=== PATIENT | female | born 1965 | race Caucasian/White ===

== ENCOUNTER → 2017-04-18 | Outpatient (CLI) | payer BC ==
[~2017-04-18] MED LIST: ASPI-321 OR; BUPR150T47 PO; TPRSRUNK; ZCRUNK
--- NOTE | 2017-04-18 11:36 | DIAGNOSTIC IMAGING REPORT ---
LUMBAR SPINE 5 VIEWS HISTORY: Pain LOWER BACK PAIN COMPARISON: None. FINDINGS: There is no fracture. No subluxation. Minimal degenerative disc change IMPRESSION: Minimal/mild degenerative disc change. No acute process. Electronically signed by: Bo Davis M.D. 04/18/2017 11:35 AM Dictated Date/Time: 04/18/2017 11:33 AM
== END | disposition home or self-care (01) ==
LOC: C.RADBC 11:18
PROVIDERS: ATTEND Nurse Practitioner Adult Health
DX: M54.5 Low back pain (principal)

== ENCOUNTER → 2017-05-30 | Outpatient (CLI) | payer BC ==
[2017-05-30 11:36] LABS: BASO % 0.3 %; BASO ABS # 0.02 K/uL (0-0.2); COMPLETE YES; EOS % 1.4 %; HEMATOCRIT 47.5 % (37-47); IG% 0.3 %; LYMPH % 29.5 %; LYMPH ABS # 2.29 K/uL (1.2-3.4); MEAN CORPUSCULAR HEMOGLOBIN 32.9 pg (25-34); MEAN CORPUSCULAR HGB CONC 33.3 g/dl (32-36); MEAN PLATELET VOLUME 11.4 fL (7.4-10.4); MONO % 7.3 %; NEUT % 61.2 %; PLATELET COUNT 219 K/uL (130-400); WHITE BLOOD COUNT 7.77 K/uL (4.8-10.8)
[2017-05-30 12:00] LABS: ALT/SGPT 21 U/L (12-78); BLOOD UREA NITROGEN 7 mg/dl (7-18); CALCIUM 9.4 mg/dl (8.5-10.1); CARBON DIOXIDE 26 mmol/L (21-32); CHLORIDE 107 mmol/L (98-107); CHOLESTEROL 206 mg/dl (0-200); CREATININE 0.53 mg/dl (0.60-1.20); GLUCOSE 77 mg/dl (70-99); POTASSIUM 4.2 mmol/L (3.5-5.1); SODIUM 140 mmol/L (136-145)
[2017-05-30 12:03] LABS: ALKALINE PHOSPHATASE 88 U/L (45-117); AST/SGOT 17 U/L (15-37); CHOLESTEROL/HDL RATIO 2.9; HDL CHOLESTEROL 72 mg/dl; LDL CHOLESTEROL CALCULATED 91 mg/dl; TRIGLYCERIDES 214 mg/dl (0-150); VERY LOW DENSITY LIPOPROT CALC 43 mg/dl
[2017-05-30 13:51] LABS: ESTIMATED AVERAGE GLUCOSE 103 mg/dl; HA1C FLAG Normal (Normal)
--- NOTE | 2017-06-04 11:30 | CODING QUERY MEDICAL NECESSITY ---
CQSUPPORTING DIAGNOSIS NEEDED A supporting diagnosis is required for the test/procedure performed on this patient in order for us to be reimbursed by the patient's insurance. Please provide a supporting diagnosis for the following test/procedure listed below next to the test name along with your signature. *If there is no additional diagnosis for this patient that would support the following test/procedure please document that below next to the test/procedure. Test(s)/Procedure(s) that require a supporting diagnosis: DOS 05/30/17 VITAMIN D TEST GLYCATED HEMOGLOBIN TEST Provider Signature: Date: Thank you Asya Gallagher Health Information Management Once completed, please kindly fax back to [phone] For questions please call [phone]
== END | disposition home or self-care (01) ==
LOC: C.LAB 10:37
PROVIDERS: ATTEND Nurse Practitioner
DX: Z00.00 Encounter for general adult medical examination without abnormal findings (principal); E78.5 Hyperlipidemia, unspecified

== ENCOUNTER → 2018-04-12 | Outpatient (CLI) | payer BC ==
--- NOTE | 2018-04-12 10:45 | DIAGNOSTIC IMAGING REPORT ---
CHEST 2 VIEWS ROUTINE CLINICAL HISTORY: R05 [id number] COMPARISON STUDY: 03/12/2015 FINDINGS: The cardiac and mediastinal contours are normal. There is no evidence of focal pulmonary consolidation. There is no evidence of failure. No pleural effusions are visualized.[ IMPRESSION: No active disease in the chest. Electronically signed by: Neri Carlton M.D. 04/12/2018 10:43 AM Dictated Date/Time: 04/12/2018 10:43 AM
== END | disposition home or self-care (01) ==
LOC: C.RAD1850 10:26
PROVIDERS: ATTEND Physician Assistant
DX: R05 Cough (principal)

== ENCOUNTER 2022-04-30 10:26 | Observation (INO) ==
[2022-04-30] MEDS ORDERED: ONDANSETRON INJ 2 MG/ML 2 ML VIAL IV STA (10:32)
--- NOTE | 2022-04-30 10:34 | Emergency Department Note ---
Impression & Plan Chest pain ADMIT ED Provider Note HPI: The patient is a 56-year-old female who presents emergency department with chief complaint of chest pain. Patient states that her chest pain is now resolved. She states that around 8:30 AM she developed some substernal chest discomfort that radiated to her back. She states she also had some nausea at that time. Patient states that she contacted EMS for transport to the ED however by the time she arrived here her discomfort had resolved. She was given aspirin in route via EMS. EKG in the field did not show any ST elevation. She states she also took some Motrin around 9 AM. Patient has a history of hypertension, longs tanding smoking history, on arrival here to the ED she is in no acute distress, states she is now pain-free, she is otherwise hemodynamically stable on my initial assessment, saturating well on room air. 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 Patient states this lasted for about an hour and a half, resolved spontaneously prior to arrival here to the ED. on arrival the patient is hypertensive but otherwise in no acute distress on my initial assessment. IV was established, lab work obtained, patient was given aspirin prior to arrival. EKG on arrival does not show any acute ischemic changes, high-sensitivity troponin level is within normal limits on initial check. D-dimer is also within normal limits. Upon review of the patient's chart, she did have a diagnostic catheterization done several years ago that shows evidence of nonocclusive LAD coronary artery disease, she did not receive a stent at that time. She is an active smoker with an approximate [id number] history of smoking, she has a history of hypertension, she is 56 years old, she has a high heart score, I feel that she is appropriate for admission for ACS rule out. Her to admission she states she does have mild sensation of lightheadedness but her chest pain is resolved currently. Case was discussed with the on-call provider [facility] and the patient was admitted in stable condition for further care. HEART SCORE = 5 Diagnosis: 1. Chest pain, nonspecific, acute 2. History of tobacco use/encounter for tobacco cessation counseling 3. Hypertension Disposition: ADMIT Bo Pichardo DO Emergency Medicine Past Med/Surg History Medical History (Updated 04/30/22 @ 11:40 by Bo Pichardo DO) Bleeding hemorrhoids Chronic obstructive pulmonary disease inhaler daily/prn Hyperlipidemia Hypertension Surgical History History of bilateral tubal ligation History of endometrial ablation History of wisdom tooth extraction Family History Mother Family history of diabetes mellitus Brother Family history of esophageal cancer Father Myocardial infarction Other No family history of adverse response to anesthesia Denies family history of Ovarian cancer Prostate cancer Breast cancer Colorectal cancer Social History Smoking Status: Current every day smoker Tobacco Type: Cigarettes Cigarettes Per Day: 20 a day; Second Hand Exposure: Yes ( smokes/parents smoked); Hx Alcohol Use: No Hx Substance Use: No Preferred Language: Urdu Communication Ability: Effective Kitchen Worker Required: No Beliefs That Will Affect Care: None Current Living Situation: Spouse and Family Current Living Situation Comment: Lives with and son Feels Safe at Home: Yes Assistive Devices: None Allergies Allergies Allergy/AdvReac Type Severity Reaction Status Date / Time Sulfa (Sulfonamide Allergy Intermediate Hives Verified 02/10/22 16:28 Antibiotics) Home Meds Home Medications Medication Instructions Recorded Confirmed bupropion HCl 150 mg 24 hr tablet, 300 mg PO Q OTHER DAY 04/30/22 04/30/22 extended release Previous Rx's Medication Instructions Recorded albuterol sulfate 90 mcg/actuation 2 puff INHALATION Q4 PRN #3 inhaler 12/13/21 aerosol inhaler (ProAir HFA) budesonide-formoterol HFA 160 2 puff INHALATION BID #3 inhaler 12/13/21 mcg-4.5 mcg/actuation aerosol inhaler (Symbicort) lisinopril 30 mg tablet 30 mg PO DAILY #90 tab 12/13/21 metoprolol succinate 100 mg 100 mg PO HS #90 tab 12/13/21 tablet,extended release 24 hr simvastatin 20 mg tablet 20 mg PO HS #90 tab 12/13/21 Results & Data (ED) Vital Signs Vital Signs - 24 hr 04/30/22 10:34 04/30/22 11:43 Temperature 36.6 C Temperature Source Oral Pulse Rate 62 Pulse Rate [Apical] 56 L Respiratory Rate 18 16 Respiratory Effort / Characteristics Non-Labored Respiratory Depth Normal Blood Pressure 153/84 H Blood Pressure [Left Arm] 161/117 H Blood Pressure Mean 107 Blood Pressure Mean [Left Arm] 131 Pulse Oximetry 99 95 Oxygen Delivery Method Room Air Room Air Sepsis Recent Fever Within 48 Hours No Sepsis New/Unexplained Change in Mental Status No Sepsis Action Taken by Nursing No Action Required Laboratory Data Result diagrams: 04/30/22 10:38 04/30/22 10:38 Lab Results 04/30/22 04/30/22 04/30/22 Range/Units 10:38 10:38 10:38 WBC 8.71 (4.8-10.8) K/uL RBC 4.37 (4.2-5.4) M/uL Hgb 15.1 (12.0-16.0) g/dL Hct 44.3 (37-47) % MCV 101.4 H (80-100) fL MCH 34.6 H (25-34) pg MCHC 34.1 (32-36) g/dL RDW Std Deviation 46.4 H (36.4-46.3) fL RDW Coeff of Sfoya 12.4 (11.5-14.5) % Plt Count 210 (130-400) K/uL MPV 10.9 H (7.4-10.4) fL Immature Gran % (Auto) 0.3 % Neut % (Auto) 63.1 % Lymph % (Auto) 25.1 % [place] % (Auto) 10.3 % Eos % (Auto) 1.1 % Baso % (Auto) 0.1 % Neut # (Auto) 5.48 (1.4-6.5) K/uL Lymph # (Auto) 2.19 (1.2-3.4) K/uL [place] # (Auto) 0.90 H (0.11-0.59) K/uL Eos # (Auto) 0.10 (0-0.5) K/uL Baso # (Auto) 0.01 (0-0.2) K/uL Immature Gran # (Auto) 0.03 H (0.00-0.02) K/uL PT 10.2 Cancelled (9.0-12.0) Seconds INR 1.0 Cancelled (0.9-1.1) APTT 28.1 Cancelled (21.0-31.0) Seconds PTT Ratio 1.0 Cancelled D-Dimer 250 (0-500) ug/L FEU Sodium (136-145) mmol/L Potassium (3.5-5.1) mmol/L Chloride (98-107) mmol/L Carbon Dioxide (21-32) mmol/L Anion Gap (3-11) BUN (6-23) mg/dl Creatinine (0.6-1.2) mg/dl Est Cr Clr Drug Dosing ml/min Est GFR ( Amer) ml/min Est GFR (Non-Af Amer) ml/min BUN/Creatinine Ratio (10-20) Glucose (70-99(Fasting)) mg/dl Calcium (8.5-10.1) mg/dl Total Bilirubin (0.2-1.0) mg/dl AST (13-39) U/L ALT (7-52) U/L Alkaline Phosphatase (34-104) U/L Troponin I High Sens (0-14) pg/ml Total Protein (6.0-8.3) gm/dl Albumin (3.4-5.0) gm/dl Globulin (2.5-4.0) gm/dl Albumin/Globulin Ratio (0.9-2) Lipase (11-82) U/L 04/30/22 Range/Units 10:38 WBC (4.8-10.8) K/uL RBC (4.2-5.4) M/uL Hgb (12.0-16.0) g/dL Hct (37-47) % MCV (80-100) fL MCH (25-34) pg MCHC (32-36) g/dL RDW Std Deviation (36.4-46.3) fL RDW Coeff of Sofya (11.5-14.5) % Plt Count (130-400) K/uL MPV (7.4-10.4) fL Immature Gran % (Auto) % Neut % (Auto) % Lymph % (Auto) % [place] % (Auto) % Eos % (Auto) % Baso % (Auto) % Neut # (Auto) (1.4-6.5) K/uL Lymph # (Auto) (1.2-3.4) K/uL [place] # (Auto) (0.11-0.59) K/uL Eos # (Auto) (0-0.5) K/uL Baso # (Auto) (0-0.2) K/uL Immature Gran # (Auto) (0.00-0.02) K/uL PT (9.0-12.0) Seconds INR (0.9-1.1) APTT (21.0-31.0) Seconds PTT Ratio D-Dimer (0-500) ug/L FEU Sodium 133 L (136-145) mmol/L Potassium 4.7 (3.5-5.1) mmol/L Chloride 101 (98-107) mmol/L Carbon Dioxide 24 (21-32) mmol/L Anion Gap 8 (3-11) BUN 11 (6-23) mg/dl Creatinine 0.53 L (0.6-1.2) mg/dl Est Cr Clr Drug Dosing 114.4 ml/min Est GFR ( Amer) 121.3 ml/min Est GFR (Non-Af Amer) 104.7 ml/min BUN/Creatinine Ratio 20.8 H (10-20) Glucose 101 H (70-99(Fasting)) mg/dl Calcium 8.9 (8.5-10.1) mg/dl Total Bilirubin 0.5 (0.2-1.0) mg/dl AST 25 (13-39) U/L ALT 15 (7-52) U/L Alkaline Phosphatase 61 (34-104) U/L Troponin I High Sens 3.5 (0-14) pg/ml Total Protein 6.7 (6.0-8.3) gm/dl Albumin 4.1 (3.4-5.0) gm/dl Globulin 2.6 (2.5-4.0) gm/dl Albumin/Globulin Ratio 1.6 (0.9-2) Lipase 50 (11-82) U/L Administered Medications Discontinued Medications Ondansetron HCl (Ondansetron Inj 2 Mg/Ml 2 Ml Vial) 4 mg IV NOW STA Stop: 04/30/22 10:33 Last Admin: 04/30/22 11:06 Dose: Not Given Documented by: [id number] Imaging Data Radiologist's Impression: Chest X-Ray 04/30/22 10:32 SINGLE VIEW CHEST CLINICAL HISTORY: Atypical chest pain. FINDINGS: An AP, portable, upright chest radiograph is compared to study dated 06/29/2012 and correlated with chest CT dated 06/27/2020. The heart is top normal for projection noting atherosclerotic calcification of the thoracic aorta. Mild emphysema and chronic interstitial thickening is similar to previous. Scarring/atelectasis is noted at the lung bases. No airspace consolidation or large pleural effusion is identified. No pneumothorax is seen. The skeletal structures are osteopenic. The bony thorax is grossly intact. There is mild thoracic scoliosis. IMPRESSION: Mild emphysematous change with no acute cardiopulmonary abnormality identified. ACT 112: Negative or not required by law. Electronically signed by: Wade Baron M.D. 04/30/2022 10:47 AM Discharge Plan Visit Data Chief Complaint: Cardiac Assessment Stated Complaint: CHEST PAIN ED Provider: Bo Pichardo Discharge Problem: Chest pain Forms Stand Alone Forms: My [facility] aihuishou Prescriptions Prescriptions: No Action albuterol sulfate [ProAir HFA] 90 mcg/actuation HFA aerosol inhaler 2 puff INHALATION Q4 PRN (Reason: Shortness Of Breath) Qty: 3 RF: 3 Symbicort 160-4.5 mcg/actuation HFA aerosol inhaler 2 puff INHALATION BID Qty: 3 RF: 3 lisinopril 30 mg tablet 30 mg PO DAILY Qty: 90 RF: 3 metoprolol succinate 100 mg tablet extended release 24 hr 100 mg PO HS Qty: 90 RF: 3 simvastatin 20 mg tablet 20 mg PO HS Qty: 90 RF: 3 bupropion HCl 150 mg tablet extended release 24 hr 300 mg PO Q OTHER DAY RF: 0 Referrals Referrals: Nilda Simpson CRNP [Primary Care Provider] - Discharge Problem: Chest pain Qualifiers: Chest pain type: unspecified Qualified Code(s): R07.9 - Chest pain, unspecified
--- NOTE | 2022-04-30 10:48 | XRay Report ---
SINGLE VIEW CHEST CLINICAL HISTORY: Atypical chest pain. FINDINGS: An AP, portable, upright chest radiograph is compared to study dated 06/29/2012 and correlat ed with chest CT dated 06/27/2020. The heart is top normal for projection noting atherosclerotic calci fication of the thoracic aorta. Mild emphysema and chronic interstitial thickening is similar to prev ious. Scarring/atelectasis is noted at the lung bases. No airspace consolidation or large pleural eff usion is identified. No pneumothorax is seen. The skeletal structures are osteopenic. The bony thorax is grossly intact. There is mild thoracic scoliosis. IMPRESSION: Mild emphysematous change with no acute cardiopulmonary abnormality identified. ACT 112: Negative or not required by law. Electronically signed by: Wade Baron M.D. 04/30/2022 10:47 AM
[2022-04-30 10:54] LABS: Basophils # (auto) 0.01 K/uL (0-0.2); Basophils % (auto) 0.1 %; Eosinophils % (auto) 1.1 %; Hematocrit (blood only) 44.3 % (37-47); Hemoglobin 15.1 g/dL (12.0-16.0); Immature Granulocytes # (auto) 0.03 K/uL (0.00-0.02); Immature Granulocytes % (auto) 0.3 %; Lymphocytes # (auto) 2.19 K/uL (1.2-3.4); Lymphocytes % (auto) 25.1 %; Mean Corpuscular Hemoglobin 34.6 pg (25-34); Mean Corpuscular Hgb Conc 34.1 g/dL (32-36); Mean Corpuscular Volume 101.4 fL (80-100); Mean Platelet Volume 10.9 fL (7.4-10.4); Monocytes % (auto) 10.3 %; Neutrophils # (auto) 5.48 K/uL (1.4-6.5); Neutrophils % (auto) 63.1 %; Platelet Count 210 K/uL (130-400); RDW Coefficient of Variation 12.4 % (11.5-14.5); RDW Standard Deviation 46.4 fL (36.4-46.3); Red Blood Count 4.37 M/uL (4.2-5.4); White Blood Count 8.71 K/uL (4.8-10.8)
[2022-04-30 11:19] LABS: D Dimer 250 ug/L FEU (0-500); Partial Thromboplastin Time 28.1 Seconds (21.0-31.0); Prothrombin Time 10.2 Seconds (9.0-12.0)
[2022-04-30 11:27] LABS: Troponin I High Sensitivity 3.5 pg/ml (0-14)
[2022-04-30 11:32] LABS: Albumin Globulin Ratio 1.6 (0.9-2); Albumin Level 4.1 gm/dl (3.4-5.0); BUN Creatinine Ratio 20.8 (10-20); Bilirubin,Total 0.5 mg/dl (0.2-1.0); Calcium 8.9 mg/dl (8.5-10.1); Creatinine Clr Calc Pharmacy 114.4 ml/min; Est GFR (African American) 121.3 ml/min; Est GFR (Non-African American) 104.7 ml/min; Globulin 2.6 gm/dl (2.5-4.0); Total Protein 6.7 gm/dl (6.0-8.3)
[2022-04-30 11:44] LABS: Potassium 4.7 mmol/L (3.5-5.1)
[2022-04-30] MEDS ORDERED: lisinopril 10 MG TAB PO ONE (12:30)
--- NOTE | 2022-04-30 12:35 | History & Physical Report ---
Date of Service April 30, 2022 Assessment & Plan (1) Chest pain: Plan: Chest pain with maximal intensity at approx 0915 this morning - cardiac vs. noncardiac chest pain vs. HTN uncontrolled - ECG without dynamic changes - HScTNI negative at 3.5 at 1030- repeat at 1230- 4.8 - ECHO eval for RWMA - Trend HScTNI and risk stratify based on above trends - Will look to control better if rising HScTNI and/or CP - - D-dimer drawn by EMD negative- as well as not hypoxic or tachycardic- PE unlikely (2) Non-occlusive coronary artery disease: Plan: Cardiac caths in 2007 and 2019 - 2008 presented with retrosternal chest pressure following eating- with negative stress ECHO in 2006- luminal irregularities of LAD without stenosis, minor irregularity of the Proximad RCA - 2019 dyspnea- with abnormal echo and normal ECG- cath - 50% LAD proximal - Remains on simvastatin 20mg daily - Metoprolol XR 100mg QHS - Not on daily asa- 81mg asa in AM (3) Hypertension: Plan: Usually well controlled per patient - Currently 160-180/100s - Lisinopril 10mg PO now - CXR is without mediastinal widening (4) Chronic venous insufficiency: Plan: Noted with left lower extremity swelling since 07/20- duplex negative for DVT but with varacosities - follows with Dr. Steven- Followign for intervention if worsening of symptoms or failure with compression stockings - she currently is not wearing these (5) Chronic obstructive pulmonary disease: Plan: ON albuluterol and symbicort - no evidence of PFTS supporting - continues to smoke- smoking cessation education to be provided (6) Hyperlipidemia: Plan: Continue simvastatin 20mg - lipid panel History of Present Illness Primary Care Provider: PARIS Katz 56 YOF medical history of: CAD (cath 2019- 50% LAD proximal portion), HTN, HLD, Current smoker, COPD. Patient comes to the EMD today for complaints of chest pain. The pain was located in the center of her chest described as pressure that radiated to her upper neck and her arms bilaterally felt heavy, this was also associated with nausea and dizziness. This started at 0830 this morning while she was at work sitting, she got up to try and move around to see if that made it better, this made the pain wax and wain, but at 915 the pain reached its maximum and dizziness increased, so she attempted to drive home- as she was driving home she pulled off to side of road and called EMS secondary to the above. By the time EMS got to her she was feeling better and her chest pain went away, remained with some dizziness. She was given 4 baby ASA and was brought to the EMD. She has felt better since arriving and has not received any NTG. In the EMD she is noted to be hypertensive 160-180s/100s. She had ECG done CXR performed, and routine labs to include HScTNI. HScTNI at 1030(2 hour after onset of pain) was 3.5 and her ECG is without ST elevation or depressions. Hospitalist service was consulted for admission secondary to her risks and known non-obstructive CAD. Patient remains hypertensive as above, and will draw HScTNI at 1230 as this would be 3 hours after maximum intensity of pain/discomfort/dizziness. Will give her 10mg Lisinopril for her BP now. HR is in the 60s and she is currently without symptom she had this morning. Will obtain ECHO to [facility]. Observe further risk stratify trend another HScTNI. She had invasive studies done in 04/2020 for presentation with dyspnea- her ECG during her stress was normal but abnormal ECHO- which then led to the above catheterization evaluation. No new medications but her mother did pass away last month so has been feeling increased sadness with this. COVID test on admission is: NEGATIVE Allergies Allergy/AdvReac Type Severity Reaction Status Date / Time Sulfa (Sulfonamide Allergy Intermediate Hives Verified 04/30/22 11:45 Antibiotics) Home Medications Medication Instructions Recorded Confirmed Type albuterol sulfate 90 mcg/actuation 2 puff INHALATION Q4 PRN #3 inhaler 12/13/21 04/30/22 Rx aerosol inhaler (ProAir HFA) budesonide-formoterol HFA 160 2 puff INHALATION BID #3 inhaler 12/13/21 04/30/22 Rx mcg-4.5 mcg/actuation aerosol inhaler (Symbicort) lisinopril 30 mg tablet 30 mg PO DAILY #90 tab 12/13/21 04/30/22 Rx metoprolol succinate 100 mg 100 mg PO HS #90 tab 12/13/21 04/30/22 Rx tablet,extended release 24 hr simvastatin 20 mg tablet 20 mg PO HS #90 tab 12/13/21 04/30/22 Rx bupropion HCl 150 mg 24 hr tablet, 300 mg PO Q OTHER DAY 04/30/22 04/30/22 Histo ry extended release Past Med/Surg History Medical History (Updated 04/30/22 @ 12:29 by PARIS Archibald) Bleeding hemorrhoids Chronic obstructive pulmonary disease inhaler daily/prn Current smoker Hyperlipidemia Hypertension Non-occlusive coronary artery disease Surgical History History of bilateral tubal ligation History of endometrial ablation History of wisdom tooth extraction Family History Mother Family history of diabetes mellitus Brother Family history of esophageal cancer Father Myocardial infarction Other No family history of adverse response to anesthesia Denies family history of Ovarian cancer Prostate cancer Breast cancer Colorectal cancer Social History Smoking Status: Current every day smoker Tobacco Type: Cigarettes Cigarettes Per Day: 20 a day; Second Hand Exposure: Yes ( smokes/parents smoked); Hx Alcohol Use: No Hx Substance Use: No Preferred Language: Burkinan Communication Ability: Effective 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 Beliefs That Will Affect Care: None Current Living Situation: Spouse and Family Current Living Situation Comment: Lives with and son Feels Safe at Home: Yes Assistive Devices: None Review of Systems Review of Systems: REVIEW OF SYSTEMS: Constitutional: No fever, sweats or chills Eyes: No diplopia, no worsening or blurred vision ENT: normal hearing, no trouble swallowing Respiratory: No cough, sputum, dyspnea at rest or on exertion Cardiovascular: (+) chest pain, tightness or palpitations, left leg swelling Abdomen: (+) nausea, No pain, nausea, vomiting, diarrhea or constipation Musculoskeletal: No joint pain, calf pain, swelling Neurologic: No weakness, numbness/tingling, or balance problems Psychiatric: (+) anxiety or depression Skin: No rash or itch Physical Exam Physical Exam: PHYSICAL EXAM: General: awake, alert, no apparent distress Head: Normocephalic, atraumatic ENT: PERRL, EOMI, no pharyngeal exudate, mucous membranes moist Neuro: AAO x 3, speech clear and appropriate, strength intact bilaterally 5/5, sensation intact and equal all extremities and dermatomes, no pronator drift Chest: equal rise and fall of the chest, no accessory muscle use, no heaves or thrills, Clear to auscultation, on room air, Cardiac: Regular rate and rhythm, telemetry reviewed-NSR, skin warm dry, cap refill <3 seconds, peripheral pulses +2 no JVD, no murmur, trace edema left lower extremity GI: NABS x 4 quadrants, soft, nontender to palpation, no rebound, guarding or tenderness : Spontaneously voiding, no pain, no CVA tenderness, Extremities: Normal inspection, no peripheral edema or erythema, calfs nontender to palpation Psych: Normal mood and affect Skin: no rash or erythema Results & Data Results & Data ([facility]) Vital Signs (Past 12 Hours) Vital Signs Temp Pulse Pulse Resp BP BP Pulse Ox 04/30/22 11:43 56 L 16 161/117 H 95 04/30/22 10:34 36.6 C 62 18 153/84 H 99 Laboratory Results Abnormal lab results 04/30/22 04/30/22 Range/Units 10:38 10:38 MCV 101.4 H (80-100) fL MCH 34.6 H (25-34) pg RDW Std Deviation 46.4 H (36.4-46.3) fL MPV 10.9 H (7.4-10.4) fL Morrison # (Auto) 0.90 H (0.11-0.59) K/uL Immature Gran # (Auto) 0.03 H (0.00-0.02) K/uL Sodium 133 L (136-145) mmol/L Creatinine 0.53 L (0.6-1.2) mg/dl BUN/Creatinine Ratio 20.8 H (10-20) Glucose 101 H (70-99(Fasting)) mg/dl Diagnostic Findings Chest X-Ray 04/30/22 10:32 SINGLE VIEW CHEST CLINICAL HISTORY: Atypical chest pain. FINDINGS: An AP, portable, upright chest radiograph is compared to study dated 06/29/2012 and correlated with chest CT dated 06/27/2020. The heart is top normal for projection noting atherosclerotic calcification of the thoracic aorta. Mild emphysema and chronic interstitial thickening is similar to previous. Scarring/atelectasis is noted at the lung bases. No airspace consolidation or large pleural effusion is identified. No pneumothorax is seen. The skeletal structures are osteopenic. The bony thorax is grossly intact. There is mild thoracic scoliosis. IMPRESSION: Mild emphysematous change with no acute cardiopulmonary abnormality identified. ACT 112: Negative or not required by law. Electronically signed by: Wade Baron M.D. 04/30/2022 10:47 AM Medications Administered Home Medications albuterol sulfate 90 mcg/actuation aerosol inhaler (ProAir HFA) 2 puff INHALATION Q4 PRN #3 inhaler 12/13/21 [Rx Confirmed 04/30/22] budesonide-formoterol HFA 160 mcg-4.5 mcg/actuation aerosol inhaler (Symbicort) 2 puff INHALATION BID #3 inhaler 12/13/21 [Rx Confirmed 04/30/22] lisinopril 30 mg tablet 30 mg PO DAILY #90 tab 12/13/21 [Rx Confirmed 04/30/22] metoprolol succinate 100 mg tablet,extended release 24 hr 100 mg PO HS #90 tab 12/13/21 [Rx Confirmed 04/30/22] simvastatin 20 mg tablet 20 mg PO HS #90 tab 12/13/21 [Rx Confirmed 04/30/22] bupropion HCl 150 mg 24 hr tablet, extended release 300 mg PO Q OTHER DAY 04/30/22 [History Confirmed 04/30/22] Discontinued Medications Lisinopril (Lisinopril 10 Mg Tab) 10 mg PO ONE ONE Stop: 04/30/22 12:31 Last Admin: 04/30/22 12:32 Dose: 10 mg Documented by: [id number] Ondansetron HCl (Ondansetron Inj 2 Mg/Ml 2 Ml Vial) 4 mg IV NOW STA Stop: 04/30/22 10:33 Last Admin: 04/30/22 11:06 Dose: Not Given Documented by: [id number] ECG Additional Comments: Normal sinus rhythm Normal ECG When compared with ECG of 29-JUN-2012 00:17, No significant change was found Code Status & VTE Plan Code Status CODE: FULL VTE: SCDs, ambulation, asa Supervising Physician Co-Signing Physician Notes I personally examined the patient and verified all guerrero points of history and exam, discussed case, and agree with decision making with Bridgette TOLEDO chest pain - heaviness/pressure radiated to upper back b/l. onset at rest. lasted ~90mins- but not constant the whole time - came and went - was there more than not, but came and went. took ibuprofen, tried to walk around -wasn't going away so came to ER. on the way she felt worse so she pulled car over and called 911. 4 asa w EMS, but pain was ?subsiding anyway. none now. LHC 2 years ago 50-60% LAD no other significant stenoses (was done after diffuse hypokinesis on stress testing) vitals noted nad heent nc at mmm. cardio distant but reg, lungs clear. b/l upper Tspine paraspinals high tone. L sided ribcage vaguely uncomfortable to palpation EKG NSR. chest pain - seems most c/w ribcage, however, does have CAD/risks for progression. with 50-60% stenosis ~2yrs ago, seems most likely that she would be STEMI or no ACS -- and since not STEMI this is reassurring as long as troponins conitnue to be negative. that said, since she still smokes, could have progressed CAD in that time. since last cath was due to vaguely but diffusely positive stress echo - doubt repeating that would be of benefit (likely to be a positive again). ?nuclear stress vs clinical judgement that without troponins, the rest of her hx makes CAD unlikely - -will ask cardiology for opinion in this regard. persistent macrocytosis - check B12 at next lab draw PG Care Time/CCT Total # of Minutes Spent Total Time Spent with Patient: Total time spent is greater than 50% in coordination of care (as documented) at patient's floor/unit and/or counseling patient: Coding Level of Care Code INT OBSERVATION CARE 70M LVL 3 Diagnoses Chest pain R07.9 Chest pain type: unspecified Non-occlusive coronary artery disease I25.10 Chronic venous insufficiency I87.2 Hypertension I10 Chronic obstructive pulmonary disease J44.9 Hyperlipidemia E78.5 (1) Chest pain Chest pain type: unspecified Qualified Code(s): R07.9 - Chest pain, unspecified
[2022-04-30] MEDS ORDERED: buPROPion XL 300 MG TABCR PO SCH (15:12)
[2022-04-30] MEDS ORDERED: NITROGLYCERIN SL 0.4 MG/TAB TAB SL PRN (15:12)
[2022-04-30] MEDS ORDERED: ACETAMINOPHEN 325 MG TAB PO PRN (15:12)
[2022-04-30] MEDS ORDERED: ALBUTEROL HFA 8 GM INHALER INH PRN (15:15)
--- NOTE | 2022-04-30 18:45 | XCELERA ---
[id number] \\[id number]___[id number]
[2022-04-30] MEDS ORDERED: SIMVASTATIN 20 MG TAB PO SCH (21:00)
[2022-04-30] MEDS ORDERED: METOPROLOL SUCC 50MG EXT REL TAB PO SCH (21:00)
[2022-05-01 05:53] LABS: Basophils # (auto) 0.01 K/uL (0-0.2); Basophils % (auto) 0.1 %; Eosinophils # (auto) 0.14 K/uL (0-0.5); Eosinophils % (auto) 1.9 %; Hematocrit (blood only) 45.2 % (37-47); Hemoglobin 15.3 g/dL (12.0-16.0); Immature Granulocytes # (auto) 0.02 K/uL (0.00-0.02); Immature Granulocytes % (auto) 0.3 %; Lymphocytes # (auto) 2.22 K/uL (1.2-3.4); Mean Corpuscular Hemoglobin 34.5 pg (25-34); Mean Corpuscular Hgb Conc 33.8 g/dL (32-36); Mean Corpuscular Volume 101.8 fL (80-100); Mean Platelet Volume 10.7 fL (7.4-10.4); Monocytes # (auto) 0.71 K/uL (0.11-0.59); Monocytes % (auto) 9.6 %; Neutrophils # (auto) 4.31 K/uL (1.4-6.5); Neutrophils % (auto) 58.1 %; Platelet Count 191 K/uL (130-400); RDW Coefficient of Variation 12.9 % (11.5-14.5); RDW Standard Deviation 47.2 fL (36.4-46.3); Red Blood Count 4.44 M/uL (4.2-5.4); White Blood Count 7.41 K/uL (4.8-10.8)
[2022-05-01 06:20] LABS: Troponin I High Sensitivity 3.2 pg/ml (0-14)
[2022-05-01 06:22] LABS: BUN Creatinine Ratio 14.3 (10-20); Calcium 8.8 mg/dl (8.5-10.1); Chol HDL Ratio 2.4 (0-5); Creatinine Clr Calc Pharmacy 112.6 ml/min; Est GFR (African American) 124.5 ml/min; Est GFR (Non-African American) 107.4 ml/min; Magnesium 1.9 mg/dl (1.7-2.4); Potassium 4.1 mmol/L (3.5-5.1)
[2022-05-01] MEDS ORDERED: CYANOCOBALAMIN 1000 MCG/ML VIAL IM SCH (09:00)
[2022-05-01] MEDS ORDERED: ASPIRIN 81 MG ECTAB PO SCH (09:00)
[2022-05-01] MEDS ORDERED: lisinopril 10 MG TAB PO SCH (09:00)
[2022-05-01] MEDS ORDERED: FLUTICASONE/VILANTEROL 100/25MCG 14 PUFFS/INHALER INH SCH (09:00)
[2022-05-01] MEDS ORDERED: METOPROLOL TARTRATE 1 MG/ML VIAL IV ONE (10:07)
[2022-05-01] MEDS ORDERED: ATROPINE SULFATE 0.1 MG/ML 10ML SYR IV ONE (10:07)
[2022-05-01] MEDS ORDERED: DOBUTamine HCL 12.5 MG/ML 20 ML VIAL IV ONE (10:07)
--- NOTE | 2022-05-01 12:38 | XCELERA ---
[id number] \\[id number]___[id number]
--- NOTE | 2022-05-01 12:54 | Discharge Summary ---
Date of Service May 01, 2022 Admission HPI Per Admitting Provider 56 YOF medical history of: CAD (cath 2019- 50% LAD proximal portion), HTN, HLD, Current smoker, COPD. Patient comes to the EMD today for complaints of chest pain. The pain was located in the center of her chest described as pressure that radiated to her upper neck and her arms bilaterally felt heavy, this was also associated with nausea and dizziness. This started at 0830 this morning while she was at work sitting, she got up to try and move around to see if that made it better, this made the pain wax and wain, but at 915 the pain reached its maximum and dizziness increased, so she attempted to drive home- as she was driving home she pulled off to side of road and called EMS secondary to the above. By the time EMS got to her she was feeling better and her chest pain went away, remained with some dizziness. She was given 4 baby ASA and was brought to the EMD. She has felt better since arriving and has not received any NTG. In the EMD she is noted to be hypertensive 160-180s/100s. She had ECG done CXR performed, and routine labs to include HScTNI. HScTNI at 1030(2 hour after onset of pain) was 3.5 and her ECG is without ST elevation or depressions. Hospitalist service was consulted for admission secondary to her risks and known non-obstructive CAD. Patient remains hypertensive as above, and will draw HScTNI at 1230 as this would be 3 hours after maximum intensity of pain/discomfort/dizziness. Will give her 10mg Lisinopril for her BP now. HR is in the 60s and she is currently without symptom she had this morning. Will obtain ECHO to [facility]. Observe further risk stratify trend another HScTNI. She had invasive studies done in 04/2020 for presentation with dyspnea- her ECG during her stress was normal but abnormal ECHO- which then led to the above catheterization evaluation. No new medications but her mother did pass away last month so has been feeling increased sadness with this. COVID test on admission is: NEGATIVE Discharge Data Allergies Allergy/AdvReac Type Severity Reaction Status Date / Time Sulfa (Sulfonamide Allergy Intermediate Hives Verified 04/30/22 11:45 Antibiotics) Consultations 04/30/22 11:43 ED Decision to Admit Stat Hospital Course (1) Chest pain: Chest pain with maximal intensity at approx 0915 this morning - cardiac vs. noncardiac chest pain vs. HTN uncontrolled - ECG without dynamic changes - HScTNI negative at 3.5 at 1030- repeat at 1230- 4.8 - ECHO eval for RWMA - Trend HScTNI and risk stratify based on above trends - Will look to control better if rising HScTNI and/or CP - - D-dimer drawn by EMD negative- as well as not hypoxic or tachycardic- PE unlikely (2) Non-occlusive coronary artery disease: Cardiac caths in 2007 and 2019 - 2008 presented with retrosternal chest pressure following eating- with negative stress ECHO in 2006- luminal irregularities of LAD without stenosis, minor irregularity of the Proximad RCA - 2019 dyspnea- with abnormal echo and normal ECG- cath - 50% LAD proximal - Remains on simvastatin 20mg daily - Metoprolol XR 100mg QHS - Not on daily asa- 81mg asa in AM (3) Hypertension: Usually well controlled per patient - Currently 160-180/100s - Lisinopril 10mg PO now - CXR is without mediastinal widening (4) Chronic venous insufficiency: Noted with left lower extremity swelling since 07/20- duplex negative for DVT but with varacosities - follows with Dr. Steven- Followign for intervention if worsening of symptoms or failure with compression stockings - she currently is not wearing these (5) Chronic obstructive pulmonary disease: ON albuluterol and symbicort - no evidence of PFTS supporting - continues to smoke- smoking cessation education to be provided (6) Hyperlipidemia: Continue simvastatin 20mg - lipid panel (7) B12 deficiency: (8) Current smoker: Discharge Plan Discharge Items Patient Disposition: Home - Self-Care Reason For Visit: chest pain, hypertension Discharge Diagnosis: Chest pain-noncardiac B12 deficiency Condition on Discharge: Good Activity: Resume your previous activity Non-emergency contact: Primary Care Provider Call non-emergency contact if: you have any medication questions Follow-up/Referrals: Nilda Simpson CRNP [Primary Care Provider] - (Follow up within 1-2 weeks.) Diet: Heart Healthy Addtl Attending Provider Instructions: You were admitted for chest pain and were ruled out for heat attack. You had a normal stress test. This could be related to either a gastrointestinal issue like acid reflux, or otherwise a musculoskeletal issue. It is now resolved. Because you have known coronary artery disease based on your cardiac catheterization previously, you should be taking aspirin 81mg once daily and your cholesterol medicine will be switched to a better drug called atorvastatin (rather than simvastatin). It is very important that you completely quit smoking cigarettes. I checked your Wellbutrin prescription and because you are prescribed the XL version (long acting), you DO NOT have to take it twice a day. You CAN take both tablets at the same time once a day in the morning for a total of 300mg. Pending Studies at Discharge: No Stand-Alone Forms: My [facility], Smoking Cessation Medications and DC Order Prescriptions: New atorvastatin 40 mg Tablet 40 mg PO QAM Qty: 30 RF: 0 aspirin 81 mg Tablet,Delayed Release (Dr/Ec) 81 mg PO QAM Qty: 30 RF: 0 cyanocobalamin (vitamin B-12) 1,000 mcg capsule 1,000 mcg PO DAILY Qty: 30 RF: 0 Continued albuterol sulfate [ProAir HFA] 90 mcg/actuation HFA aerosol inhaler 2 puff INHALATION Q4 PRN (Reason: Shortness Of Breath) Qty: 3 RF: 3 Symbicort 160-4.5 mcg/actuation HFA aerosol inhaler 2 puff INHALATION BID Qty: 3 RF: 3 lisinopril 30 mg tablet 30 mg PO DAILY Qty: 90 RF: 3 metoprolol succinate 100 mg tablet extended release 24 hr 100 mg PO HS Qty: 90 RF: 3 Changed bupropion HCl 150 mg tablet extended release 24 hr 300 mg PO DAILY Qty: 0 RF: 0 Discontinued simvastatin 20 mg tablet 20 mg PO HS Qty: 90 RF: 3 Discharge Orders: Discharge Order (Routine); Ordered 05/01/22 Ordered By: Lillie Hull Admission Data Admit Date/Time: 04/30/22 12:39 Attending Provider: Lillie Hull Admit Provider: Ronaldo Benjamin Primary Care Provider: Nilda Simpson Other Providers: Ronaldo Benjamin ; Jose Cruz Benavidez Coding Diagnoses Chest pain R07.9 Chest pain type: unspecified Non-occlusive coronary artery disease I25.10 Hypertension I10 Chronic venous insufficiency I87.2 Chronic obstructive pulmonary disease J44.9 Hyperlipidemia E78.5 B12 deficiency E53.8 Current smoker F17.200
--- NOTE | 2022-05-01 15:58 | Electrocardiogram Report ---
Test Reason : Blood Pressure : / mmHG Vent. Rate : 061 BPM Atrial Rate : 061 BPM P-R Int : 150 ms QRS Dur : 086 ms QT Int : 406 ms P-R-T Axes : 064 069 063 degrees QTc Int : 408 ms Poor data quality, interpretation may be adversely affected Normal sinus rhythm Normal ECG When compared with ECG of 29-JUN-2012 00:17, No significant change was found Confirmed by Jak Fowler ([id number]) on 05/01/2022 3:58:24 PM Referred By: REFERRED SELF Confirmed By:Jak Fowler
[2022-05-02] MEDS ORDERED: ATORVASTATIN 40 MG TAB PO SCH (09:00)
== END 2022-05-01 13:42 | disposition home or self-care (01) ==
LOC: ED 10:26 → EDINP 10:26 → SUATTDRO 12:39 → 2N 15:40